=== PATIENT | female | born 1980 | race Caucasian/White ===

== ENCOUNTER 2016-10-26 12:13 | Emergency (ER) | payer SELFPAY ==
--- NOTE | ~2016-10-26 | ER ---
PATIENT'S NAME: [facility] AGE: 36 Y [address] ROOM: [place] [id number] LOCATION: [facility] ADMIT DATE: 10/26/2016 ER/Outpatient Report DISCHARGE DATE: 10/26/2016 FAMILY PHYSICIAN: PHYSICIAN, NO ATTENDING PHYSICIAN: Nick Triana Time of Arrival: 1215 hours. Time of Evaluation: 1215 hours. CHIEF COMPLAINT: Chest pain. HISTORY OF PRESENT ILLNESS: The patient states she has had chest pain off and on for the past week. States it is in the middle of her chest, some radiation to the right side. She has had some shortness of breath, some swelling of her left leg, and today has a headache. She went to [facility] initially, and they sent her here for further evaluation. She denies being dizzy or lightheaded. ALLERGIES: SHE HAS NO KNOWN ALLERGIES. CURRENT MEDICATIONS: Bltm-tmk-mefqmir vitamins. PAST MEDICAL HISTORY: Benign. PAST SURGICAL HISTORY: and tubal ligation. SOCIAL HISTORY: She denies use of tobacco, drugs, or alcohol. She lives in [facility], is here in town, and decided it was best to get things checked. REVIEW OF SYSTEMS: All negative other than those mentioned in the HPI. PHYSICAL EXAMINATION: VITAL SIGNS: She weighs 139 kg, blood pressure is 151/79, pulse is 76, respirations 20, temperature of 98.7 tympanic, O2 saturations 100% on room air. [place] Coma Scale is 15. GENERAL: She is awake, alert, and oriented x4. SKIN: [place], warm, and dry. RESPIRATIONS: Even and nonlabored. PATIENT'S NAME: [facility] AGE: 36 Y [address] ROOM: [place] [id number] LOCATION: [facility] ADMIT DATE: 10/26/2016 ER/Outpatient Report DISCHARGE DATE: 10/26/2016 FAMILY PHYSICIAN: PHYSICIAN, NO ATTENDING PHYSICIAN: Nick Triana HEENT: Pupils are equal and reactive to light. Extraocular movement is intact. Oropharynx is clear. NECK: Supple. No lymphadenopathy. LUNGS: Lung sounds are clear throughout. HEART: Regular rate and rhythm. ABDOMEN: Soft, nondistended. Bowel sounds are present. LABORATORY DATA AND X-RAYS: EKG was completed. It shows normal sinus rhythm. CBC is within normal limits. Chem panel is within normal limits. Cardiac enzymes are negative. D- dimer was negative. EMERGENCY DEPARTMENT COURSE: Recommended the patient get Toradol for her headache, but she refused. Asked if she could just have some Tylenol. She was given acetaminophen 1000 mg p.o. Monitored. Vital signs were stable. Blood pressure did come down. Monitor continues to be a sinus rhythm. Chest x-ray was completed. No acute abnormality was seen. IMPRESSION: 1. Chest pain. 2. Headache. PLAN: Home, rest, fluids. Tylenol or ibuprofen as needed. If symptoms persist or worsen, she should follow up with her primary provider in the next 2 to 3 days or return to the ER. She verbalized understanding. JEREMY GARCIA APRN FOR MD MELANIE HESTER/srinath /[id number] d: 10/27/16 0136 t: 11/13/16 0902, OUTPATIENT REPORT
[2016-10-26 12:52] LABS: BASOPHIL # 0.1 K/uL (0.0-0.2); BASOPHIL % 0.6 %; EOSINOPHIL # 0.2 K/uL (0.0-0.5); EOSINOPHIL % 2.9 %; HEMOGLOBIN 13.6 g/dL (11.0-15.0); IMMATURE GRANULOCYTE % 0.2 %; LYMPHOCYTE # 1.9 K/uL (0.8-4.0); LYMPHOCYTE % 23.1 %; MCH 28.3 pg (27.0-34.0); MCHC 33.2 gm/dL (32.0-36.5); MCV 85.4 fl (83.0-98.0); MONOCYTE # 0.5 K/uL (0.0-1.0); MONOCYTE % 5.8 %; MPV 9.3 fl (9.4-12.4); NEUTROPHIL # (ANC) 5.6 K/uL (1.8-7.8); NEUTROPHIL % 67.4 %; NRBC % 0 /100WBC (0-0.00); PLATELET COUNT 237 K/uL (150-450); RDW-CV 12.8 % (11.9-14.6); WBC 8.3 K/uL (4.0-11.0)
[2016-10-26 13:00] LABS: INR - (THERAPEUTIC) 0.92 (0.92-1.07); PROTIME 9.6 SECONDS (9.8-11.4); PTT 27 SECONDS (25-32)
[2016-10-26 13:10] LABS: ALBUMIN 3.9 gm/dL (3.5-5.0); ALK PHOS 70 IU/L (33-138); ALT 35 IU/L (12-78); AST 21 IU/L (10-40); BLOOD UREA NITROGEN 12 mg/dL (6-24); CHLORIDE 104 mMol/L (96-110); CO2 26 mMol/L (22-32); CPK 168 IU/L (21-215); CREATININE 0.7 mg/dL (0.5-1.1); ESTIMATED GFR (MDRD EQUATION) > 60; MAGNESIUM 1.9 mg/dL (1.8-2.6); SODIUM 138 mMol/L (135-145); TOTAL BILIRUBIN 0.6 mg/dL (0.0-1.5); TOTAL PROTEIN 7.6 g/dL (6.0-8.4)
== END 2016-10-26 14:17 | disposition disaster alternative care site (69) ==
LOC: GMED 12:13
PROVIDERS: Nurse Practitioner Family
DX: R07.9 Chest pain, unspecified (principal); R51 Headache; Z98.890 Other specified postprocedural states; Z98.51 Tubal ligation status
CPT/HCPCS: J1885